=== PATIENT | male | born 1975 | race African-American/Black ===

== ENCOUNTER 2022-01-09 06:34 | Emergency (ER) | payer MEDICAID, OTHER ==
[~2022-01-09] VITALS: Ht 177.8 cm; Wt 75.0 kg
[2022-01-09] MEDS ORDERED: predniSONE 20 MG TAB PO ONE (07:45)
[2022-01-09] MEDS ORDERED: ALBUTEROL SULF 2.5 MG/0.5ML(0.5%) NEB SOLN HHN ONE (07:45)
[2022-01-09] MEDS ORDERED: IPRATROPIUM BROM 0.5 MG/2.5ML INH SOL HHN ONE (07:45)
[2022-01-09] MEDS ORDERED: ALBUAER3 IN (08:48)
[2022-01-09] MEDS ORDERED: METH4PAK PO (08:48)
[2022-01-09 09:26] VITALS: BP 151/104
== END 2022-01-09 10:59 | disposition home or self-care (01) ==
LOC: ER 06:34
DX: J45.901 Unspecified asthma with (acute) exacerbation (principal); Z90.89 Acquired absence of other organs; Z79.899 Other long term (current) drug therapy; Z88.6 Allergy status to analgesic agent; Z91.013 Allergy to seafood
CPT/HCPCS: 71046; 94644; 99285; J7512; J7644